=== PATIENT | male | born 1970 | race African-American/Black ===

== ENCOUNTER 2018-10-09 15:22 | Observation (INO) | payer SELFPAY ==
--- NOTE | 2018-10-09 15:54 | ED ---
HPI Diabetic - HPI Summary HPI Summary: This pt is a 48 y/o male presenting to [facility] via EMS for low blood glucose level and weakness and tingling. Pt reports for the past 3 days he has noticed his sugar level has been dropping and when it drops he feels weak. He notes today he felt weak and when he checked his sugar it was in the 50s. Pt states he usually feels well after eating and drinking juice. Additionally reports for more than 3 weeks he has felt his right side tingling and weakness, including his whole right arm, his right leg, and his right side of torso. Tingling is described as pins and needles. He notes this worsens when his sugar goes down. Denies problems urinating, chest pain, cough, SOB. EMS gave the pt glucose gel and upon rechecking his blood glucose it was 295. PMHx includes TIA, DM type 2, HTN. - History Of Current Complaint Chief Complaint: EDDiabeticProb Time Seen by Provider: 10/09/18 15:37 Hx Obtained From: Patient Onset/Duration: Lasting Days, Still Present Timing: Days Severity Currently: Moderate Aggravating: Nothing Alleviating: Nothing Associated Signs & Symptoms: Negative Related History: DM II - Allergies/Home Medications Allergies/Adverse Reactions: Allergies Allergy/AdvReac Type Severity Reaction Status Date / Time No Known Allergies Allergy Verified 10/09/18 16:04 Home Medications: Home Medications Amiloride HCl 10 mg PO DAILY 10/09/18 [History Confirmed 10/09/18] Amlodipine Besylate [Norvasc] 10 mg PO DAILY 10/09/18 [History Confirmed ] Aspirin 81 mg CHEW TAB* [Aspirin Low Dose TAB*] 81 mg PO DAILY 10/09/18 [ History Confirmed 10/09/18] Clopidogrel Bisulfate [Plavix] 75 mg PO DAILY 10/09/18 [History Confirmed ] Lisinopril 10 mg PO DAILY 10/09/18 [History Confirmed 10/09/18] Metformin HCl 1,000 mg PO BID 10/09/18 [History Confirmed 10/09/18] Simvastatin [Zocor 5 MG-] 10 mg PO DAILY 10/09/18 [History Confirmed 10/09/18] glipiZIDE [Glipizide] 5 mg PO DAILY 10/09/18 [History Confirmed 10/09/18] PMH/Surg Hx/FS Hx/Imm Hx Endocrine/Hematology History: Reports: Hx Diabetes Cardiovascular History: Reports: Hx Hypercholesterolemia, Hx Hypertension Neurological History: Reports: Hx Transient Ischemic Attacks (TIA) - Immunization History Immunizations Up to Date: Yes Infectious Disease History: No Infectious Disease History: Denies: Traveled Outside the [place] in Last 30 Days - Family History Known Family History: Negative: Cardiac Disease - Social History Alcohol Use: Occasionally Substance Use Type: Reports: None Smoking Status (MU): Never Smoked Tobacco Review of Systems Negative: Fever Negative: Chest Pain Negative: Cough Positive: no symptoms reported Positive: Weakness, Paresthesia All Other Systems Reviewed And Are Negative: Yes Physical Exam - Summary Physical Exam Summary: Constitutional: Well-developed, Well-nourished, Alert. (-) Distressed Skin: Warm, Dry HENT: Normocephalic; Atraumatic Eyes: Conjunctiva normal Neck: Musculoskeletal ROM normal neck. (-) JVD, (-) Stridor, (-) Tracheal deviation Cardio: Rhythm regular, rate normal, Heart sounds normal; Intact distal pulses; The pedal pulses are 2+ and symmetric. Radial pulses are 2+ and symmetric. (-) Murmur Pulmonary/Chest wall: Effort normal. (-) Respiratory distress, (-) Wheezes, (-) Rales Abd: Soft, (-) tenderness, (-) Distension, (-) Guarding, (-) Rebound Musculoskeletal: (-) Edema Lymph: (-) Cervical adenopathy Neuro: Alert, Oriented x3. No neurological deficits. Psych: Mood and affect Normal Triage Information Reviewed: Yes Vital Signs On Initial Exam: Initial Vitals Temp Pulse Resp BP Pulse Ox 99.1 F 98 18 134/85 99 10/09/18 15:28 10/09/18 15:28 10/09/18 15:28 10/09/18 15:28 10/09/18 15:28 Vital Signs Reviewed: Yes Diagnostics - Vital Signs Vital Signs Temp Pulse Resp BP Pulse Ox 10/09/18 15:28 99.1 F 98 18 134/85 99 - Laboratory Result Diagrams: 10/09/18 16:21 10/09/18 16:21 Lab Statement: Any lab studies that have been ordered have been reviewed, and results considered in the medical decision making process. - CT Brain CT CT Interpretation Completed By: Radiologist Summary of CT Findings: IMPRESSION: 1. No acute intracranial abnormality (MRI is more sensitive for acute infarct). 2. Mild mucosal disease of the right sphenoid sinus. Dr. Wiley has reviewed this report. - EKG 16:23 Cardiac Rate: NL - at 88 bpm EKG Rhythm: Sinus Rhythm Summary of EKG Findings: Normal OR. Normal QRS. Normal QTc. STs are elevated in V2, V3. T waves are flattened in aVF. Nonspecific EKG. Re-Evaluation - Re-Evaluation First Eval Re-Evaluation Time: 17:57 Comment: Discussed admission plan with the pt. He understands and agrees. Diabetic Course/Dx - Course Assessment/Plan: Pt is a 48 y/o male presenting to [facility] via EMS for low blood glucose level for the past 3 days and right sided weakness and tingling for more than 3 weeks. PMHx includes DM type 2, HTN, TIA. POC glucose was 320. Test results remarkable for potassium of 97, glucose of 163, lactic acid of 3.8. Urine shows 3+ glucose. Brain CT shows 1. No acute intracranial abnormality (MRI is more sensitive for acute infarct). 2. Mild mucosal disease of the right sphenoid sinus. In the ED course the pt was given IV fluids and potassium chloride. Discussed the case with Dr. Alfonso, neurologist, who recommends admission. Discussed with Dr. Harding, hospitalist, who accepted the pt for admission. - Diagnoses Provider Diagnoses: Stroke - Physician Notifications Discussed Care Of Patient With: Ekta Alfonso Time Discussed With Above Provider: 17:52 Instructed by Provider To: Other - Discussed with Dr. Alfonso, neurologist, who recommends admission to the hospitalist. [18:56] Discussed with Dr. Harding, hospitalist, who accepted the pt for admission. Discharge - Sign-Out/Discharge Documenting (check all that apply): Patient Departure - Admit to [facility] Patient Received Moderate/Deep Sedation with Procedure: No - Discharge Plan Condition: Stable Disposition: ADMITTED TO [facility] Referrals: No Primary Care Phys,NOPCP [Primary Care Provider] - - Billing Disposition and Condition Condition: STABLE Disposition: Admitted to [facility] - Attestation Statements Document Initiated by Scribe: Yes Documenting Scribe: Kaya Jones Provider For Whom Scribe is Documenting (Include Credential): Duyen Cho MD Scribe Attestation: I, Kaya Jones, scribed for Duyen Simons MD on 10/09/18 at 1825. Scribe Documentation Reviewed: Yes Provider Attestation: The documentation as recorded by the scribe, Kaya Jones accurately reflects the service I personally performed and the decisions made by me, Duyen Simons MD Status of Scribe Document: Viewed
[2018-10-09 16:38] LABS: ABS Eosinophils 0.1 10^3/ul (0-0.6); ABS Lymphocytes 1.2 10^3/ul (1.0-4.8); ABS Monocytes 0.6 10^3/ul (0-0.8); ABS Neutrophils 5.7 10^3/ul (1.5-7.7); Eosinophil % 0.8 %; Hematocrit 42 % (42-52); Hemoglobin 14.2 g/dL (14.0-18.0); Lymphocyte % 15.7 %; Mean Corpuscular HGB Conc 34 g/dL (31-36); Mean Corpuscular Hemoglobin 30 pg (27-31); Mean Corpuscular Volume 88 fL (80-94); Mean Platelet Volume 7.4 fL (7.4-10.4); Platelet Count 257 10^3/uL (150-450); Red Blood Count 4.77 10^6 /uL (4.18-5.48); Red Cell Distribution Width 14 % (10-15); White Blood Count 7.6 10^3/uL (3.5-10.8)
[2018-10-09 16:40] LABS: Urine Appearance Cloudy; Urine Bilirubin Negative (Negative); Urine Blood Negative (Negative); Urine Color Yellow; Urine Glucose 3+(>=500 mg/dL) (Negative); Urine Ketones Negative (Negative); Urine Nitrite Negative (Negative); Urine Protein Negative (Negative); Urine Urobilinogen Negative (Negative)
[2018-10-09 16:46] LABS: ALT 39 U/L (7-52); AST 31 U/L (13-39); Albumin 4.6 g/dL (3.2-5.2); Albumin/Globulin Ratio 1.4 (1-3); Alkaline Phosphatase 51 U/L (34-104); Anion Gap 10 mmol/L (2-11); BUN/Creatinine Ratio 15.3 (8-20); Blood Urea Nitrogen 11 mg/dL (6-24); C Reactive Protein < 1.00 mg/L (<8.01); CO2 Carbon Dioxide 28 mmol/L (22-32); Calcium 9.7 mg/dL (8.6-10.3); Chloride 97 mmol/L (101-111); EGFR African American 139.8 (>60); EGFR Non-African American 115.6 (>60); Globulin 3.3 g/dL (2-4); Glucose 163 mg/dL (70-100); Potassium 3.4 mmol/L (3.5-5.0); Sodium 135 mmol/L (135-145); Total Protein 7.9 g/dL (6.4-8.9)
[2018-10-09] MEDS ORDERED: Potassium Chloride* LIQUID 20 MEQ/15 ML UDC PO ONE (17:37)
[2018-10-09] MEDS ORDERED: NS 0.9% 1000 ML** 1,000 ML IV ONE ×2 (17:38→20:51)
[2018-10-09] MEDS ORDERED: Acetaminophen TAB* 325 MG PO PRN (19:43)
[2018-10-09] MEDS ORDERED: NS 0.9% 1000 ML** 1,000 ML IV SCH (19:45)
[2018-10-09] MEDS ORDERED: Enoxaparin(*) 40 MG/0.4 ML SYR SUBCUT SCH (20:00)
[2018-10-09] MEDS ORDERED: Lisinopril TAB* 10 MG PO SCH (21:00)
--- NOTE | 2018-10-09 21:44 | HP ---
HISTORY AND PHYSICAL: ADDENDUM: Lactic acidosis. The patient does have an elevated lactic acid. The patient has no current signs of underlying infection. His urine was within normal limits. He has no cough or congestion. No fevers. I will add on a chest x-ray, but at this time has no acute source of infection. I suspect this could be related to his hypoglycemia. KENDAL NGUYEN, SUPERVISOR FLESHING [id number]/[facility] #: [id number] [facility]ITALRocio
--- NOTE | 2018-10-09 21:44 | HP ---
ADDENDUM NOW INCLUDED ON THIS REPORT HISTORY AND PHYSICAL: DATE OF ADMISSION: 10/09/18 PROVIDER: Sharlene Varela NP PRIMARY CARE PROVIDER: Out [place], [place]. ATTENDING PHYSICIAN WHILE IN THE HOSPITAL: Dr. Jamal Hinojosa * (dictated by Sharlene Varela NP). CHIEF COMPLAINT: 1. Hypoglycemia. 2. Right-sided tingling. HISTORY OF PRESENT ILLNESS: Mr. Head is a 48-year-old gentleman with past medical history significant for type 2 diabetes, hypertension, hyperlipidemia, history of TIA and questionable CVA in February 2016 with residual right-sided heaviness per the patient, who presented to the emergency room for evaluation of hypoglycemia and increased tingling and heaviness on the right side. The patient reports that his care visiting from out of [facility], he currently resides in [place]. He reports that 3 days ago, he started having episodes of low blood sugar. He states that approximately in noon every day he becomes weak and dizzy and when he checks his blood sugar, his blood sugar is in the 50s. He reports that he takes sugar and candy and drinks soda and his blood sugar would rise and then the symptoms would resolve. Patient reports that again today, he became dizzy, felt weak. He checked his blood sugar, it was 50. Again, he ate candies and drank soda and his sugar was 120. Patient reports that again he felt dizzy. He was talking on the phone, he felt like he was going to pass out. He checked his blood sugar and it was 50. The patient also reports that he has had twitching and a sensation of tingling and heaviness on the right side that has been significantly worse for the last 4 to 5 weeks. Due to these symptoms, he presented to the emergency room for further evaluation. PAST MEDICAL HISTORY: Significant for: 1. Type 2 diabetes. 2. Hypertension. 3. Hyperlipidemia. 4. History of TIA in February 2016. PAST SURGICAL HISTORY: None. HOME MEDICATIONS: Include: 1. Metformin 1000 mg p.o. b.i.d. 2. Glimepiride 4 mg p.o. daily. 3. Amiloride 10 mg p.o. daily. 4. Amlodipine 10 mg p.o. daily. 5. Plavix 75 mg p.o. daily. 6. Aspirin 81 mg p.o. daily. 7. Lisinopril 10 mg p.o. at h.s. 8. Simvastatin 10 mg p.o. at h.s. 9. Multivitamin 1 tab p.o. daily. ALLERGIES: No known drug allergies. FAMILY HISTORY: Mother and father both with a history of hypertension. Mother with diabetes. No reported history of cancer. SOCIAL HISTORY: The patient denies any tobacco or illicit drug use. He does report a rare alcohol use. He is . Surrogate decision maker in the event he is unable to make his own decisions is his or his sister. He is a full code. REVIEW OF SYSTEMS: The patient denies any fever, chills, unintended weight loss. Denies any chest pain or edema. Denies any cough, hemoptysis, or shortness of breath. No nausea, vomiting, diarrhea, or abdominal pain, hematuria, or dysuria. He denies any focal weakness. He does complain of tingling and heaviness feeling to the right side of his body including arm and leg, but no sensory loss. Sensation is intact to the right side of his body in full. He does have full range of motion. Denies any visual changes and dizziness. Denies any headache. Denies any dysphagia. Denies any arthralgias , myalgias, rashes, lesions, or open sores. Denies any psychosis or anxiety. PHYSICAL EXAMINATION GENERAL: At this time, Mr. Head is a 48-year-old gentleman. He is alert and oriented, resting on the stretcher in the emergency room. He is in no acute distress. VITAL SIGNS: Blood pressure 130/79, heart rate 88, respirations 19, O2 saturation 99%, room air, temperature 99.1. HEENT: Head is atraumatic, normocephalic. Eyes: EOMs are intact. Sclerae anicteric and not pale. Oral mucosa appeared to be moist. NECK: Supple. LUNGS: Clear to auscultation bilaterally. No wheezes, rales, or rhonchi. CARDIAC: S1, S2. Regular rate and rhythm. No murmurs, rubs, or gallops. ABDOMEN: Soft, nontender. Bowel sounds are present x4. EXTREMITIES: He is able to move all 4 extremities. There is no clubbing or cyanosis. Pedal pulses are +2 bilaterally. He does not have any edema. NEUROLOGIC: He is awake, alert, oriented x3. Speech is clear. Thought process intact. There is no gross focal deficits. There is no pronator drift. There is no leg drift. Push-pull is intact. Hand elevator operator service are equal. Smile is equal. Tongue is midline. There is no facial asymmetry. Vqyweq-[id number] is intact. There is no gross focal neuro deficits. SKIN: Intact. LABORATORY DATA AND DIAGNOSTIC STUDIES: WBCs are 7.6, RBC is 4.77, hemoglobin 14.2, hematocrit of 42, platelet count 257. Sodium 135, potassium 3.4, chloride 107, carbon dioxide is 28, anion gap is 10, BUN was 11, creatinine 0.72 , glucose was 163. Repeat in the emergency room 113. Lactic acid initially was 3.8, calcium 9.7. ASTs were 31, ALTs were 39, alkaline phosphatase was 51. Troponin was 0.00. C-reactive protein was less than 1. Urine was within normal limits with the exception to glucose, was 3+. He had a CT of the brain, radiologist's impression: No acute intracranial abnormality. Mild mucosal disease on the right sphenoid sinus. He had an electrocardiogram, which showed sinus rhythm at a rate of 88. No ST or T wave changes. ASSESSMENT AND PLAN: Mr. Head is a 48-year-old gentleman with a past medical history significant for hypertension, hyperlipidemia, type 2 diabetes, history of transient ischemic attack, questionable cerebrovascular accident in 2016, who presented to the emergency room with complaints of hypoglycemia and tingling and heaviness on the right side of his body. He will be admitted to rule out cerebrovascular accident under observation. 1. Hypoglycemia. The patient has had several episodes of hypoglycemia over the past 3 days and 2 episodes of blood sugars in the 50s today. Initially, on admission to the emergency room, he had a blood sugar of 320 and repeat at 07: 30 this evening, his blood sugar was 113. He will place him on q.2 hour Accu- Cheks and monitor him overnight. If his blood sugar should continue to drop, we will place him on D5 and monitor his blood sugars closely. I will hold his metformin and glimepiride at this time. I am not going to place him on a lispro sliding scale as the patient has had several episodes of hypoglycemia. If he should become hyperglycemic, we will consider ordering Lispro sliding scale at that time. 2. Right-sided heaviness and tingling. We will do a transient ischemic attack workup. I have consulted Neurology, Dr. Alfonso, who will see the patient see the in consultation tomorrow. He has requested an MRA of the head and neck and an MRI of the brain, which have been ordered. I will get a transthoracic echocardiogram with bubble study. We will place him on neuro checks q.4 hours. We will continue him on Plavix 75, aspirin 81 mg and simvastatin at 10 mg p.o. daily. 3. Hypertension. The patient will continue on amiloride, lisinopril, and amlodipine as per his home medications. 4. Type 2 diabetes. Patient will have Accu-Cheks q.2 hours. Due to hypoglycemia, I will hold his metformin and glimepiride at this time. I will hold off on placing the patient on Lispro sliding scale as the patient has had several episodes of hypoglycemia. I will add a hemoglobin A1c for the morning as well. 5. High cholesterol. The patient will continue on simvastatin 10 mg p.o. daily. We will repeat a lipid profile in the a.m. 6. History of transient ischemia attack, possible cerebrovascular accident, the patient will continue on Plavix and aspirin as previously prescribed. 7. FEN: He can have a consistent carb diet. 8. Code status: He is full code. 9. DVT prophylaxis: I will place him on Lovenox 40 mg subcu daily. TIME SPENT: Time spent on this admission was approximately 60 minutes, greater than half that time was spent at the bedside reviewing the events leading thus far to his hospitalization, performing physical exam, reviewing my plan of care. I have discussed this with my attending, Dr. Jamal Hinojosa. He is in agreement with my plan. SHARLENE VARELA NP ADDENDUM: Lactic acidosis. The patient does have an elevated lactic acid. The patient has no current signs of underlying infection. His urine was within normal limits. He has no cough or congestion. No fevers. I will add on a chest x-ray , but at this time has no acute source of infection. I suspect this could be related to his hypoglycemia. SHARLENE PATRICK, ELECTRIC MOTORMAN [id number]/[facility] #: [id number]/[facility] #: [id number] [facility] SYSTEMRocio
[2018-10-09] MEDS: Atorvastatin* 10 MG TAB PO SCH (21:49)
[2018-10-10 07:14] LABS: BUN/Creatinine Ratio 11.9 (8-20); Calcium 9.1 mg/dL (8.6-10.3); EGFR African American 175.9 (>60); EGFR Non-African American 145.4 (>60); HDL Cholesterol 45.4 mg/dL
[2018-10-10] MEDS: Atorvastatin* 10 MG TAB PO SCH (08:53)
[2018-10-10] MEDS ORDERED: aMILoride TAB* 5 MG PO SCH (09:00)
[2018-10-10] MEDS ORDERED: Aspirin 81 mg CHEW TAB* 81 MG TAB.CHEW PO SCH (09:00)
[2018-10-10] MEDS ORDERED: amLODIPine TAB* 5 MG PO SCH (09:00)
[2018-10-10] MEDS ORDERED: Clopidogrel TAB* 75 MG PO SCH (09:00)
--- NOTE | 2018-10-10 10:35 | CONS ---
NEUROLOGY CONSULTATION NOTE: DATE OF CONSULT: 10/10/18 CONSULTING PROVIDER: Sharlene Varela NP REASON FOR CONSULT: Intermittent right-sided weakness. CHIEF COMPLAINT: Stiffness of the right side. HISTORY OF PRESENT ILLNESS: Mr. Head is a 48-year-old right-handed man who has remote lacunar stroke involving the left lenticulostriate branches with right-sided deficits, who reported no residual weakness, but over the past 2 months, he has had intermittent stiffness in the right upper and lower extremity with occasional involvement of the right face. The stiffness is triggered when his blood glucose fluctuates. He notices stiffness in the right arm. He noticed some muscle aching in the right forearm and right shoulder. His glucose would fluctuate from around the 50s to the 300s. He denied any new focal weakness or paresthesias. He has had the symptoms for the past 2 months. The stiffness can last minutes to days. He denied any neck pain or impairment in his bowel or bladder function. He takes both aspirin and Plavix regularly. He is also taking atorvastatin regularly. Currently, the patient denied any headaches, visual disturbance, swollen difficulty, speech abnormality , or weakness on the left side. PAST MEDICAL HISTORY: Type 2 diabetes, hypertension, dyslipidemia, history of stroke in 2015. MEDICATIONS: Home medications: 1. Aspirin 81 mg daily. 2. Glipizide 5 mg p.o. daily. 3. Simvastatin 10 mg p.o. daily. 4. Metformin 1000 mg p.o. b.i.d. 5. Lisinopril 10 mg p.o. daily. 6. Clopidogrel 75 mg p.o. daily. 7. Amlodipine 10 mg p.o. daily. 8. Amiloride 10 mg p.o. daily. ALLERGIES: No known drug allergies. FAMILY HISTORY: Mother and brother suffer from strokes. SOCIAL HISTORY: The patient denied any tobacco or alcohol abuse. 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 REVIEW OF SYSTEMS: A 14-point review of systems was obtained and otherwise negative except for what was mentioned in the HPI. PHYSICAL EXAM: Vitals: Temperature of 98.1, pulse of 49, respiratory rate of 14, oxygen saturation 99%, blood pressure 100/63. General: Well-nourished, well- developed man, in no acute distress. Head: Normocephalic, atraumatic. Eyes: Conjunctivae/corneas are clear. Neck: Supple and symmetrical with no carotid bruit. Lungs are clear to auscultation bilaterally. Nonlabored breathing. Cardiovascular: Regular rate and rhythm with normal S1, S2. Extremities: Normal range of motion with no cyanosis. Skin: No skin lesions or laceration. Psych: Affect is bright and normal mood. Easy to establish rapport. Mental status: Awake, alert, and oriented to person, place, time and general circumstances. Speech and language including expression, naming, repetition, and comprehension were assessed and found to be normal. Cranial Nerves: Normal confrontation testing bilaterally. Pupils are mid range and reactive to light. Normal consensual response. Sensation is intact on the forehead, cheeks, and jaw region. There is no facial droop. He is able to hear throughout the history process. Symmetrical palatal elevation. Normal strength against resistance. Tongue is symmetrical and midline with no atrophy or fasciculation. Motor Examination: No abnormal movements with pronator drift. Normal tone throughout. No spasticity. Strength is 5/5 strength in upper and lower extremities bilaterally. Reflexes: Right/left, brachioradialis 2/2, biceps 2/2, triceps 2/2, patella 1/1, ankle 1/1, plantar flexor/flexor. Sensation is intact to light touch throughout. Normal vibration and proprioception of the great toes. Coordination: Normal finger-to- nose and rapid alternating movement. Gait and station: Narrow based, normal stance, and no ataxia. DIAGNOSTIC STUDIES/LAB DATA: Laboratory data were obtained during this hospitalization. WBC 7.6, hemoglobin of 14.2, hematocrit of 42, platelet count of 257,000. Sodium of 135, potassium of 3.4, chloride of 97, lactic acid of 3.8 , glucose of 153, LDL of 46. Urinalysis negative for pyuria. C-reactive protein is 1.0. A CT of the head was obtained on 10/09/18. I personally reviewed the image. There is no reported acute intracranial abnormality. An MRI of the brain without contrast showed an old left lacunar stroke. There is no acute intracranial abnormality. MRA of the head and neck showed no hemodynamically significant stenosis or large vessel occlusion. ASSESSMENT AND RECOMMENDATION: Mr. Amilcar Head is a 48-year-old man with history of remote left lacunar stroke in 2016, who presents with also increase in stiffness in the right upper and lower extremity and occasionally involving the right face. His examination is nonfocal. He has no evidence of any sensory abnormality or reflex asymmetry. The MRI of the brain shows no evidence of an acute ischemic stroke. Overall, given his clinical presentation with hypo and hyperglycemia inducing focal neurological symptoms, I suspect he has a metabolic process that is causing a recrudescence of focal neurological deficits. Another possible cause is symptomatic hypotension as his blood pressure is on the lower side of normal for someone who has had a stroke in the past. He could be hypoperfusing the area of the previous stroke. Recommendations: Continue aspirin and Plavix. Continue atorvastatin. I am not sure why he is on dual antiplatelet therapy but from the neurology standpoint, I do not recommend long-term dual antiplatelet therapy. Therefore, I encouraged him to discontinue aspirin after 30 days. I recommended it for 30 days since he is currently exhibiting some signs of cerebral hypoperfusion to the region of the previous stroke. Please place holding parameters on all of his antihypertensive agents. Maintain his systolic blood pressure between 120 to less than 140. I educated the patient regarding the importance of glycemic control. Please obtain vitamin B12 to rule out any other metabolic causes for his symptoms. I have ordered an EEG to evaluate for possible focal motor or sensory seizures. He does not complain of neck pain and has no evidence of myelopathy on examination. Therefore cervical spondylosis with myelopathy is low on the differential. However, if he continues to have symptoms, an MRI of the cervical spine without contrast can be done as an outpatient. Neuro checks every 4 hours. Pending transthoracic echo, unless he has evidence of ventricular or atrial thrombus, the findings on Echo will not change the medical management. He should follow up with Neurology within 6 to 8 weeks as an outpatient. Neurology will sign off but will follow up with ordered tests. [id number]/[facility] #: [id number] JOSE
--- NOTE | 2018-10-10 11:53 | ECHO ---
*[facility]* [place] [address] Fax #: [phone] Transthoracic Echocardiogram Patient: Amilcar Head : 1970 Study Date: 10/10/2018 Age: 48 Gender: M HR: 57 bpm Height: 71 in /180.3 cm BSA: 2.21 m^2 Weight: 209.6 lb /95.3 kg BMI: 29.3 kg/m^2 *Arrt Technologist: * Eva Kingston RDCS RN *Referring Physician: * Sharlene Varela *Reading Physician: * Jacky Martinez MD Indications: TIA. History: Transient ischemic attack. Risk factors: Hypertension. Diabetes mellitus. Dyslipidemia. Conclusions Summary: - Left ventricle: Systolic function is normal. The estimated ejection fraction is 55-60%. Wall motion is normal; there are no regional wall motion abnormalities. - Atrial septum: There is a patent foramen ovale by agitated contrast. The bubble study is positive. Images 1-3. - Mitral valve: There is trace regurgitation. - Aortic valve: There is no evidence of stenosis. There is trace regurgitation. - Tricuspid valve: There is mild regurgitation. - Pericardium, extracardiac: There is no pericardial effusion. - Pulmonary arteries: Systolic pressure is at the upper limits of normal, estimated to be 35 mm Hg. - Study data: No prior study is available for comparison. Study data: Transthoracic echocardiogram. Procedure: Transthoracic echocardiography was performed. Image quality was fair. Intravenous agitated saline was administered. A bubble study was performed on Images 1-3. Complete 2D, spectral Doppler, and color flow Doppler. Location: Bedside. Patient status: Observation. Patient room number: 446-01. No prior study is available for comparison. Rhythm: Bradycardia. Findings Left ventricle: The cavity size is normal. Wall thickness is mildly increased. Systolic function is normal. The estimated ejection fraction is 55-60%. Wall motion is normal; there are no regional wall motion abnormalities. Left ventricular diastolic function parameters are normal. Right ventricle: The cavity size is normal. Systolic function is normal. Left atrium: The atrium is normal in size. Right atrium: The atrium is normal in size. Atrial septum: There is a patent foramen ovale by agitated contrast. The bubble study is positive. Images 1-3. Mitral valve: The leaflets are mildly thickened. There is no evidence of stenosis. There is trace regurgitation. Aortic valve: The valve is trileaflet. There is no evidence of stenosis. There is trace regurgitation. Tricuspid valve: The valve is structurally normal. There is no evidence of stenosis. There is mild regurgitation. Pulmonic valve: The valve is structurally normal. There is no evidence of stenosis. There is mild regurgitation. Aorta: Aortic root: The aortic root is appears normal. Ascending aorta: The ascending aorta is not dilated. Aortic arch: The aortic arch is not dilated. Pericardium: There is no pericardial effusion. Pulmonary arteries: The main pulmonary artery is normal-sized. Systolic pressure is at the upper limits of normal, estimated to be 35 mm Hg. Systemic veins: Inferior vena cava: The vessel is mildly dilated. There is (>= 50%) respiratory change in the IVC dimension. Measurements Left ventricle Value Ref Aortic valve Value Ref EDDIE, LAX 4.5 cm 4.2 - Peak v, S 1.6 m/sec ----- 5.8 VTI, S 37.4 cm ----- ESD, LAX 3.2 cm 2.5 - Mean grad, S 6.6 mm Hg ----- 4.0 Peak grad, S 10.2 mm Hg ----- FS, LAX 29 % 25 - 43 LVOT/AV, VTI ratio 0.7 ----- PW, ED (H) 1.2 cm 0.6 - 1.0 Mitral valve Value Ref IVS/PW, ED 0.97 -------- Peak E 1.03 m/sec ----- E', lat arjun, TDI 12.0 cm/sec >=10.0 Peak A 0.82 m/sec --- -- E/e', lat arjun, TDI 9 -------- Decel time 235 ms ----- E', med arjun, TDI 12.0 cm/sec >=7.0 Peak grad, D 4.3 mm Hg --- -- E/e', med arjun, TDI 9 -------- Peak E/A ratio 1.25 ----- E', avg, TDI 12.0 cm/sec -------- E/e', avg, TDI 9 <=14 Pulmonic valve Value Ref Peak v, S 1.05 m/sec ----- LVOT Value Ref Peak grad, S 4.4 mm Hg ----- Peak therese, S 1.23 m/sec -------- VTI, S 26.4 cm -------- Tricuspid valve Value Ref Peak grad, S 6 mm Hg -------- TR peak v 2.6 m/sec <=2.8 Mean grad, S 4 mm Hg -------- Peak RV-RA grad, S 27 mm Hg ----- Ventricular septum Value Ref Aortic root Value Ref IVS, ED (H) 1.2 cm 0.6 - Root diam 3.3 cm <4.3 1.0 Ascending aorta Value Ref Right ventricle Value Ref AAo AP diam, S 3.7 cm ----- EDDIE, LAX 2.8 cm -------- EDDIE minor ax, A4C (H) 3.9 cm 1.9 - Aortic arch Value Ref mid 3.5 Arch diam 2.9 cm ----- Pressure, S 35 mm Hg -------- Decending aorta Value Ref Left atrium Value Ref Migel peak therese 0.87 m/sec ----- SI dim ES, LAX 3.7 cm -------- ML dim, A4C 4.1 cm -------- Pulmonary artery Value Ref SI dim, A4C 5.3 cm -------- Pressure, S 30.6 mm Hg ----- Vol, ES, 2-p 60 ml -------- Vol/bsa, ES, 2-p 27 ml/m^2 16 - 34 Inferior vena cava Value Ref Diam 2.3 cm ----- Right atrium Value Ref ML dim, ES, A4C 3.8 cm 2.6 - 4.4 SI dim, ES, A4C 5.1 cm 3.4 - 5.3 Estimated RAP 8 mm Hg -------- Legend: (L) and (H) mariann values outside specified reference range. Prepared and electronically signed by Jacky Martinez MD 10/10/2018 11:53
[2018-10-10 14:36] LABS: TSH (Thyroid Stimulating Horm) 1.33 mcIU/mL (0.34-5.60)
[2018-10-10 14:37] LABS: Free T4 0.86 ng/dL (0.61-1.12)
[2018-10-10 14:44] VITALS: BP 111/68
--- NOTE | 2018-10-10 15:12 | CONSULT ---
Consult Consult: PFO seen on 2D Echo. Refer patient to outpatient cardiology to discuss future options for PFO closure, especially if he continues to have symptoms of TIA/ troke. He does have history of a small stroke in the past. He did not have a new stroke this admission and I suspect recrudescence of his previous neurological deficits. He has no clinical symptoms of a DVT (no calf pain and is active). Continue DAPT for 30 days then discontinue aspirin. Encouraged him to come back to the ED immediately if he has new weakness, paresthesia, headache, visual disturbance, or slurred speech. Ekta Alfonso MD
--- NOTE | 2018-10-10 20:53 | EEG ---
ELECTROENCEPHALOGRAPHY: DATE OF SERVICE: 10/10/18 - ROOM #446 DATE READ: 10/10/18 ORDERED BY: Ekta Alfonso MD INDICATION: Mr. Head is a 48-year-old man with symptoms of stiffness in the right upper and lower extremities. This EEG was obtained to evaluate for epileptiform abnormalities or electrographic seizures. MEDICATIONS: 1. Lovenox. 2. Prinivil. 3. Midamor. 4. Norvasc. 5. Aspirin. 6. Lipitor. 7. Plavix. 8. Tylenol. DURATION OF THE [id number] REPORT: The waking background showed appropriate organization with clearly defined anterior-posterior voltage and frequency gradients. There was a well- defined posterior dominant rhythm of 10 Hz which was symmetrical and showed normal reactivity. Anteriorly, there was an expected pattern of lower voltage, irregular, mixed fast frequency. Attenuation of the occipital rhythm accompanied drowsiness. There were irregular vertex waves, high amplitude K- complex and sleep spindles seen throughout the recording. There were predominantly bifrontal theta and delta slowing seen throughout the recording that was thought to be related to K- complexes. Single electrode EKG showed normal sinus rhythm with a rate of 70 beats per minute. Throughout the recording, there were no epileptiform discharges. CLINICAL IMPRESSION: This is an essentially normal awake and sleep EEG with irregular K-complex and sleep spindles seen throughout the recording and possible high amplitude delta waves seen in the frontal region. These high amplitude delta waves were seen predominantly during sleep state and could be a normal finding, but underlying frontal intermittent rhythmic delta activity that can be seen with mild global encephalopathy cannot be entirely excluded. Clinical correlation is recommended. [id number]/[facility] #: [id number] [facility]
[2018-10-10] MEDS ORDERED: Lisinopril TAB* 5 MG PO SCH (21:00)
--- NOTE | 2018-10-10 21:02 | PN ---
Hospitalist Progress Note Date of Service: 10/10/18 Called by nursing for low blood sugar of 59 , patient was given food and repeat blood sugar was 126. Side consult to Dr. Bowie - medications reviewed and advised that this is a delayed reaction from his glimepiride. Reports that patient could experience low blood sugars over the next couple of days and should eat complex carbohydrates and check his blood sugar. Patient was advised never to take glimepiride do to having hypogylcemia as per Dr. Bowie recommendation Patient was advised to eat complex carbohydrates, such as peanut butter, proteins and not simple sugars such as candies. patient verbalized understanding. Patient advised to stop both glimepiride and metformin
--- NOTE | 2018-10-10 22:18 | DS ---
DISCHARGE SUMMARY: DATE OF ADMISSION: 10/09/18 DATE OF DISCHARGE: 10/10/18 PROVIDER: Kendal Varela NP. PRIMARY CARE PROVIDER: Out of town in the [facility]. ATTENDING PHYSICIAN WHILE IN THE HOSPITAL: Dr. Addis Huynh * (dictated by Kendal Varela NP). PRIMARY DIAGNOSES: 1. Hypoglycemia. 2. Right-sided heaviness. SECONDARY DIAGNOSES: 1. Type 2 diabetes. 2. Hypertension. 3. Hyperlipidemia. 4. History of transient ischemic attack/cerebrovascular accident in 2016. STUDIES COMPLETED WHILE IN THE HOSPITAL: He had a transthoracic echocardiogram which showed left systolic function was normal. Estimated ejection fraction was 55% to 60%. There was no regional wall motion abnormalities. In the atrial septum, there is a patent foramen ovale, positive bubble study, mitral valve trace regurgitation. There is no evidence of stenosis in the aortic valve. There was trace regurgitation. Tricuspid valve, there was mild regurgitation. No pericardial effusion. Pulmonary artery systolic pressure was upper limits of normal. He had a CT of the brain; radiologist impression: No acute intracranial abnormalities. He had an MRI of the head and neck; radiologist impression: No hemodynamically significant stenosis or large vessel occlusion. He had an MRI of the neck, no evidence of hemodynamically significant stenosis. He had an MRI of the brain, no acute intracranial abnormalities were seen. DISCHARGE MEDICATIONS: Discontinued home medications: 1. Glimepiride 5 mg p.o. daily. 2. Metformin 1000 mg p.o. b.i.d. Continued home medications: 1. Amlodipine 10 mg p.o. daily. 2. Amiloride 10 mg p.o. daily. 4. Simvastatin 10 mg p.o. daily. 5. Lisinopril was decreased to 5 mg p.o. daily. 6. Clopidogrel 75 mg p.o. daily. 7. Aspirin 81 mg p.o. daily. 8. Acetaminophen 650 mg p.o. q.6 hours as needed for pain. HISTORY OF PRESENT ILLNESS AND HOSPITAL COURSE: Mr. Head is a 48-year-old gentleman with a past medical history significant for hypertension, hyperlipidemia, type 2 diabetes and history of TIA/CVA in 2016, who presented to the emergency room with complaints of dizziness, weakness and low blood sugars, also complaining of right-sided heaviness x4 to 5 weeks. The patient reports that he is from out of town and currently resides in [place]. He is here on vacation. He reports that over the past 3 days he has been having episodes of low blood sugars. He states that this usually occurs at noon every day and he checks his blood sugars and that is in the 50s, he takes candy and soda and his blood sugar rises and the symptoms do resolve. The patient reports that again today he felt dizzy and weak. He checked his blood sugar again, it was 50. He ate candies and drink soda. The sugar was up to 120. Due to the recurrence of these symptoms and feeling dizziness along with the right side of his body feeling heavy, he presented to the emergency room for further evaluation. While in the hospital, the patient had q.2 hour Accu-Chek and his blood sugars remained within normal limits ranging from 87 to 250. He did this afternoon at 1623 have a low blood sugar of 59. Repeat was 139 and repeat an hour later was 175. I did contact Dr. Duncan from Endocrinology to discuss the patient's medications who advised that the hypoglycemia was likely a result of his glimepiride and that his metformin and glimepiride should be discontinued. At the time of discharge, the patient reports that he is feeling fine. He denies any dizziness or weakness. At this time, he is stable for discharge home. REVIEW OF SYSTEMS: The patient denies any fever, chills, nausea, vomiting or diarrhea. Denies any abdominal pain. Denies any chest pain or shortness of breath. He does continue to complain of heaviness on the right side that is unresolved. He denies any urinary frequency, urgency. PHYSICAL EXAMINATION: General: At this time, Mr. Head is alert and oriented. He is in no acute distress. Vital Signs: Blood pressure 111/68, heart rate is 65, respirations 17, O2 saturation 97%, temperature is 98.1. HEENT: Head is atraumatic, normocephalic. Eyes: EOMs are intact. Sclerae anicteric and not pale. Oral mucosa appeared to be moist. Neck is supple. Lungs are clear to auscultation bilaterally. No wheezes, rales or rhonchi. Cardiac: S1, S2, regular rate and rhythm. No murmurs, rubs or gallops. Abdomen: Soft and nontender. Bowel sounds are present x4. Neurologic: He is awake, alert and oriented x3. His speech is clear. Thought process is intact. Handgrips are equal. Tongue is midline. Smile is equal. There is no pronator drift. There is no leg drift. There is equal strength in all 4 extremities. There are no gross focal deficits. Skin is intact. At this time, Mr. Head is stable for discharge home. DISCHARGE PLAN: Mr. Head will be discharged home. Activity as tolerated. 1. Hypoglycemia. The patient has been instructed to discontinue metformin and glimepiride. I did review these medications with him. I did instruct the patient that he may have subsequent low blood sugars over the next few days as a delayed reaction of the glimepiride. I instructed the patient to eat complex carbohydrates such as peanut butter and toast, chicken, and stay away from cakes and juices as this will cause fast rise and also cause him to have low blood sugars. I instructed the patient to check his blood sugar every 4 hours and to eat 3 meals a day with snacks in between over the next few days. 2. Hypertension. The patient should continue on his amlodipine and amiloride. I did decrease his lisinopril to 5 mg at night. He should maintain a blood pressure between 120 and 140. He should follow up with his primary care doctor for further management and decreasing his blood pressure medications. 3. History of transient ischemic attack versus cerebrovascular accident. The patient was seen in consultation by Neurology during this hospitalization, who recommended the patient continue on Plavix and aspirin for 30 days and then monotherapy with Plavix 75 mg p.o. daily after the 30 days. 4. Patent foramen ovale. The patient does have a patent foramen ovale that was seen on echocardiogram. He should follow up with Cardiology within 1 month for further recommendations on possible closure of the patent foramen ovale. The patient was instructed to return to the emergency room for further episodes of uncontrolled hypoglycemia, chest pain, shortness of breath, dizziness, weakness on one side or any other concerning symptoms. I did discuss with my attending, Dr. Addis Huynh. She is in agreement with my plan. KENDAL VARELA, ONSITE HEALTH COACH [id number]/[facility] #: [id number] [facility]
== END 2018-10-10 18:30 | disposition home or self-care (01) ==
LOC: ED 15:22 → MEDTELE 19:43
PROVIDERS: ADMIT Internal Medicine; ATTEND Hospitalist
DX: E11.649 Type 2 diabetes mellitus with hypoglycemia without coma (principal); R20.2 Paresthesia of skin; I10 Essential (primary) hypertension; Z79.84 Long term (current) use of oral hypoglycemic drugs; Z79.82 Long term (current) use of aspirin; Z86.73 Personal history of transient ischemic attack (TIA), and cerebral infarction without residual deficits; E78.5 Hyperlipidemia, unspecified; Z79.01 Long term (current) use of anticoagulants; G81.91 Hemiplegia, unspecified affecting right dominant side
CPT/HCPCS: 36415; 70450; 70544; 70547; 70551; 80048; 80053; 80061; 81003; 82607; 83036; 83605; 84439; 84443; 84484; 85025; 86140; 93005; 93306; 95819; 96360; 96361; 96372; 99284; A9270-GY; G0378; J1650

== ENCOUNTER 2018-10-10 20:51 | Emergency (ER) | payer SELFPAY ==
[2018-10-10 22:24] VITALS: BP 132/81
--- NOTE | 2018-10-10 23:24 | ED ---
Syncope/Near Syncope - HPI Summary HPI Summary: The pt is 48 year old male presenting to [facility] c/o syncopal episode 3 hours FIRER LOW PRESSURE. He was discharged from [facility] earlier today but returned after having a syncopal episode at home. He was eating dinner at home and after drinking a bottle of coke he passed out for about 15 minutes. The pt was able to remember this episode. He mentions that he had a syncopal episode yesterday as well but today was different because he started seeing black. He has not taken his blood sugar medication today and has not been taking it some time on the advice of his physician. - History Of Current Complaint Chief Complaint: EDSyncope Time Seen by Provider: 10/10/18 21:04 Hx Obtained From: Patient Onset/Duration: Sudden Onset, Lasting Minutes - 15 minutes, Resolved Timing: Intermittent Episode Lasting - minutes Context: Other - "passed out" Associated Signs And Symptoms: Other - Positive - "seeing black", LOC - Allergies/Home Medications Allergies/Adverse Reactions: Allergies Allergy/AdvReac Type Severity Reaction Status Date / Time No Known Allergies Allergy Verified 10/10/18 20:56 PMH/Surg Hx/FS Hx/Imm Hx Endocrine/Hematology History: Reports: Hx Diabetes Cardiovascular History: Reports: Hx Hypercholesterolemia, Hx Hypertension, Other Cardiovascular Problems/Disorders - high cholesterol Denies: Hx Pacemaker/ICD Sensory History: Reports: Hx Contacts or Glasses Denies: Hx Hearing Aid Opthamlomology History: Reports: Hx Contacts or Glasses Neurological History: Reports: Hx Transient Ischemic Attacks (TIA) Psychiatric History: Denies: Hx Panic Disorder Infectious Disease History: No Infectious Disease History: Denies: Traveled Outside the [place] in Last 30 Days - Family History Known Family History: Negative: Cardiac Disease - Social History Alcohol Use: Occasionally Substance Use Type: Reports: None Smoking Status (MU): Never Smoked Tobacco Review of Systems Negative: Fever Positive: Syncope All Other Systems Reviewed And Are Negative: Yes Physical Exam - Summary Physical Exam Summary: VITAL SIGNS: Reviewed. GENERAL: Patient is a well-developed and nourished male who is lying comfortable in the stretcher. Patient is not in any acute respiratory distress. HEAD AND FACE: No signs of trauma. No ecchymosis, hematomas or skull depressions. No sinus tenderness. EYES: PERRLA, EOMI x 2, No injected conjunctiva, no nystagmus. EARS: Hearing grossly intact. Ear canals and tympanic membranes are within normal limits. MOUTH: Oropharynx within normal limits. NECK: Supple, trachea is midline, no adenopathy, no JVD, no carotid bruit, no c- spine tenderness, neck with full ROM CHEST: Symmetric, no tenderness at palpation LUNGS: Clear to auscultation bilaterally. No wheezing or crackles. CVS: Regular rate and rhythm, S1 and S2 present, no murmurs or gallops appreciated. ABDOMEN: Soft, non-tender. No signs of distention. No rebound no guarding, and no masses palpated. Bowel sounds are normal. EXTREMITIES: FROM in all major joints, no edema, no cyanosis or clubbing. NEURO: Alert and oriented x 3. No acute neurological deficits. Speech is normal and follows commands. SKIN: Dry and warm Triage Information Reviewed: Yes Vital Signs On Initial Exam: Initial Vitals Temp Pulse Resp BP Pulse Ox 98.4 F 86 16 137/84 98 10/10/18 20:54 10/10/18 20:54 10/10/18 20:54 10/10/18 20:54 10/10/18 20:54 Vital Signs Reviewed: Yes Diagnostics - Vital Signs Vital Signs Temp Pulse Resp BP Pulse Ox 10/10/18 22:37 98.4 F 89 16 132/81 99 10/10/18 22:22 93 16 132/81 99 10/10/18 22:20 97.9 F 83 16 128/83 99 10/10/18 20:54 98.4 F 86 16 137/84 98 - Laboratory Lab Results: Lab Results 10/10/18 10/10/18 Range/Units 21:04 22:20 POC Glucose (mg/dL) 238 H 256 H (70-100) mg/dL Lab Statement: Any lab studies that have been ordered have been reviewed, and results considered in the medical decision making process. - EKG 2158 Cardiac Rate: NL - 76 BPM EKG Rhythm: Sinus Rhythm Summary of EKG Findings: Normal [place]. Normal Interval. No ischemic changes. Course/Dx Course Of Treatment: The pt is 48 year old male presenting to [facility] c/o syncopal episode 3 hours FIRER LOW PRESSURE. He was discharged from [facility] earlier today but returned after having a syncopal episode at home. He was eating dinner at home and after drinking a bottle of coke he passed out for about 15 minutes. The pt was able to remember this episode. He mentions that he had a syncopal episode yesterday as well but today was different because he started seeing black. He has not taken his blood sugar medication today and has not been taking it some time on the advice of his physician. Test results with no significant abnormalities except for POC glucose 238 @ 2104 and 256 @ 2220. The pt refused blood work. An EKG reveals sinus rhythm, normal rate @ 76 BPM, normal axis, normal interval, and no ischemic changes. The pt was discharged and advised to follow up with checker cashier, Dr. Ramríez, and primary care physician within 3 days. - Diagnoses Provider Diagnoses: Syncope Discharge - Sign-Out/Discharge Documenting (check all that apply): Patient Departure - discharge Patient Received Moderate/Deep Sedation with Procedure: No - Discharge Plan Condition: Stable Disposition: HOME Patient Education Materials: Syncope (ED) Referrals: [facility] [Outside] - 3 Days Yury Ramírez MD [Medical Doctor] - 3 Days Additional Instructions: NO SPORTS, NO GYM, AND NO EXERTION UNTIL CLEARED BY INSTRUCTIONAL DESIGN MANAGER. FOLLOW UP WITH INSTRUCTIONAL DESIGN MANAGER, DR. RAMÍREZ AND PRIMARY CARE PHYSICIAN WITHIN 3 DAYS. RETURN TO ED FOR ANY NEW OR WORSENING SYMPTOMS. - Attestation Statements Document Initiated by Scribe: Yes Documenting Scribe: PINKY GONZALEZ Provider For Whom Ashley is Documenting (Include Credential): KENDRA WIGGINS MD Scribe Attestation: PINKY Alva, scribed for KENDRA WIGGINS MD on 10/11/18 at 0049. Status of Scribe Document: Ready
== END 2018-10-10 22:37 | disposition home or self-care (01) ==
LOC: ED 20:51
DX: R55 Syncope and collapse (principal); E11.9 Type 2 diabetes mellitus without complications; E78.00 Pure hypercholesterolemia, unspecified; I10 Essential (primary) hypertension; Z79.899 Other long term (current) drug therapy
CPT/HCPCS: 93005; 99283

== ENCOUNTER → 2018-10-11 18:12 | Emergency (ER) | payer SELFPAY ==
[2018-10-11 19:15] LABS: ABS Eosinophils 0.1 10^3/ul (0-0.6); ABS Lymphocytes 2.1 10^3/ul (1.0-4.8); ABS Monocytes 0.5 10^3/ul (0-0.8); ABS Neutrophils 4.9 10^3/ul (1.5-7.7); Eosinophil % 1.4 %; Hematocrit 40 % (42-52); Hemoglobin 13.9 g/dL (14.0-18.0); Lymphocyte % 27.4 %; Mean Corpuscular HGB Conc 35 g/dL (31-36); Mean Corpuscular Hemoglobin 31 pg (27-31); Mean Corpuscular Volume 87 fL (80-94); Mean Platelet Volume 7.4 fL (7.4-10.4); Platelet Count 265 10^3/uL (150-450); Red Blood Count 4.54 10^6 /uL (4.18-5.48); Red Cell Distribution Width 14 % (10-15); White Blood Count 7.7 10^3/uL (3.5-10.8)
[2018-10-11 19:34] LABS: Albumin 4.6 g/dL (3.2-5.2); Albumin/Globulin Ratio 1.3 (1-3); BUN/Creatinine Ratio 23.4 (8-20); Calcium 9.8 mg/dL (8.6-10.3); EGFR African American 129.4 (>60); EGFR Non-African American 106.9 (>60); Globulin 3.5 g/dL (2-4); Total Bilirubin 0.3 mg/dL (0.2-1.0); Total Protein 8.1 g/dL (6.4-8.9)
[2018-10-11 19:53] VITALS: BP 145/86
[2018-10-11 20:26] LABS: Potassium 3.8 mmol/L (3.5-5.0)
== END | disposition left against medical advice (07) ==
LOC: ED 18:12
DX: R73.9 Hyperglycemia, unspecified (principal); Z53.21 Procedure and treatment not carried out due to patient leaving prior to being seen by health care provider
CPT/HCPCS: 36415; 80053; 85025